=== PATIENT | female | born 1945 | race African-American/Black ===

== ENCOUNTER 2018-06-08 18:46 | Inpatient (IN) | payer MEDICARE, BC ==
[~2018-06-08] VITALS: Ht 160 cm; Wt 60.8 kg
[~2018-06-08 18:46] MED LIST: AMLO1CAP5 PO; BUPR1FIL3 SL; FLUO40CA49 PO; GABA-290 PO; LEVO500T89 PO; LOSA50TA20 PO; METH-375 PO; MULITVITAMIN PO; NEBI10TA2 PO; POTA20TA12 PO; RANI150T7 PO
[2018-06-08] MEDS ORDERED: METHYLPREDNISOLONE SOD SUCC 125 MG/2 ML VIAL IV STA (22:19)
[2018-06-08] MEDS ORDERED: LEVOFLOXACIN 750MG PREMIX 150 ML IV ONE (22:30)
[2018-06-08] MEDS ORDERED: IPRATROPIUM/ALBUTEROL 0.5-3(2.5)MG/3ML NEB HHN ONE (22:30)
[2018-06-08 22:56] LABS: BASOPHILS % 0.5 % (0.0-2.0); EOSINOPHILS % 5.6 % (0.0-5.0); HEMOGLOBIN. 11.7 g/dL (12.0-16.0); LYMPHOCYTES % 32.7 % (20.0-50.0); MEAN CORPUSCULAR HEMOGLOBIN 28.2 pg (28.0-32.0); MEAN CORPUSCULAR VOLUME 89.4 fL (81.0-99.0); MEAN PLATELET VOLUME 7.8 fl (7.4-10.4); MONOCYTES % 9.7 % (2.0-8.0); NEUTROPHILS % 51.5 % (40.0-76.0); PLATELET 270 x1000/uL (130-400); RED BLOOD CELL COUNT 4.14 mill/uL (4.2-5.4)
[2018-06-08 23:03] LABS: CHLORIDE 98 mEq/L (98-107); ETHANOL BLOOD < 10 mg/dL
[2018-06-08 23:05] LABS: INR 1.1; PROTHROMBIN TIME 10.7 sec (9.1-11.1)
[2018-06-08 23:34] LABS: BG BASE EXCESS 11.6 mmol/L (-2.0-2.0); BG CARBOXYHEMOGLOBIN 1.4 % (0.5-1.5); BG FRACTION INSPIRED OXYGEN 32; BG HCO3 ACT 40.3 mmol/L (22.0-26.0); BG METHEMOGLOBIN 0.1 % (0.0-1.5); BG OXYGEN SATURATION 91.9 % (92.0-98.5); BG OXYHEMOGLOBIN 90.5 % (94.0-97.0); BG PCO2 75.9 mmHg (35.0-45.0); BG PH 7.343 (7.350-7.450); BG PO2 69.9 mmHg (75.0-100.0); BG SAMPLE SITE RIGHT RADIAL; BG TOTAL HEMOGLOBIN 12.6 g/dL (12.0-18.0); BG VENT MODE NASAL CANNULA
[2018-06-09] MEDS ORDERED: POTASSIUM CHLORIDE 20MEQ TABLET SR PO ONE
[2018-06-09] MEDS ORDERED: ALBU4TAB6 PO (13:37)
[2018-06-09] MEDS ORDERED: ATOR10TA69 PO (13:43)
[2018-06-09] MEDS ORDERED: CARV12.545 PO (13:43)
[2018-06-09] MEDS ORDERED: FURO20TA4 PO (13:43)
[2018-06-09] MEDS ORDERED: LEVO50TA8 PO (13:43)
[2018-06-09] MEDS ORDERED: PREG50CA PO (13:43)
[2018-06-09] MEDS ORDERED: MONT10TA24 PO (13:43)
[2018-06-09] MEDS ORDERED: MOXI400T31 PO (13:43)
[2018-06-09] MEDS ORDERED: ALPR-340 PO (13:43)
[2018-06-09 14:00] VITALS: BP 112/71
[2018-06-09 14:19] VITALS: BP 112/112
[2018-06-09 16:00] VITALS: BP 129/79
[2018-06-09] MEDS ORDERED: NA PHOS,M-B/NA PHOS,DI-BA ENEMA 118ML PR PRN (16:45)
[2018-06-09] MEDS ORDERED: BISACODYL 10MG SUPP PR NR (16:45)
[2018-06-09] MEDS ORDERED: IPRATROPIUM/ALBUTEROL 0.5-3(2.5)MG/3ML NEB HHN PRN (16:45)
[2018-06-09] MEDS ORDERED: METHOCARBAMOL 750 MG PO PRN (16:45)
[2018-06-09] MEDS ORDERED: MEDICATION NOT ON FORMULARY EA (Furosemide 20 MG) PO SCH (16:45)
[2018-06-09] MEDS ORDERED: MEDICATION NOT ON FORMULARY EA (Fluoxetine Hcl 1 CAP) PO SCH (16:45)
[2018-06-09] MEDS ORDERED: ALBUTEROL SULFATE 4 MG PO SCH (17:00)
[2018-06-09] MEDS ORDERED: ALPRAZOLAM 0.5 MG PO SCH (17:00)
[2018-06-09] MEDS ORDERED: GABAPENTIN 300MG CAPSULE PO SCH (17:00)
[2018-06-09] MEDS ORDERED: MEDICATION NOT ON FORMULARY EA (Ranitidine Hcl 1 TAB) PO SCH (17:00)
[2018-06-09 18:00] VITALS: BP 122/60
[2018-06-09] MEDS ORDERED: LEVOFLOXACIN 500MG TABLET PO NR (18:00)
[2018-06-09] MEDS: ATORVASTATIN CALCIUM 10MG TABLET PO SCH (18:24)
[2018-06-09] MEDS: DOCUSATE SODIUM 100MG CAPSULE PO SCH (18:24)
[2018-06-09] MEDS: LEVOFLOXACIN 500MG TABLET PO SCH (18:25)
[2018-06-09] MEDS: LEVOTHYROXINE SODIUM 50MCG TABLET PO SCH (18:25)
[2018-06-09] MEDS: MONTELUKAST SODIUM 10MG TABLET PO SCH (18:25)
[2018-06-09] MEDS ORDERED: ALPRAZOLAM 0.5 MG TABLET PO SCH (18:30)
[2018-06-09] MEDS: ALBUTEROL 2MG TABLET PO SCH (19:04)
[2018-06-09] MEDS: FUROSEMIDE 20MG TABLET PO SCH (19:04)
[2018-06-09] MEDS: FLUOXETINE HCL 20MG CAPSULE PO SCH (19:05)
[2018-06-09 20:00] VITALS: BP 111/59
[2018-06-09] MEDS ORDERED: METHOCARBAMOL 750MG TABLET PO PRN (20:00)
[2018-06-09] MEDS: IPRATROPIUM/ALBUTEROL 0.5-3(2.5)MG/3ML NEB HHN SCH (20:19)
[2018-06-09] MEDS: FAMOTIDINE 20MG TABLET PO SCH (21:00)
[2018-06-09] MEDS: CARVEDILOL 12.5MG TABLET PO SCH (21:00)
[2018-06-09 22:00] VITALS: BP 160/95
[2018-06-09] MEDS: ALPRAZOLAM 0.5 MG TABLET PO SCH (22:09)
[2018-06-09] MEDS: NICOTINE 14MG PATCH TD SCH (22:09)
[2018-06-09] MEDS: METHYLPREDNISOLONE SOD SUCC 40 MG/ML VIAL IV SCH (22:12)
[2018-06-10] VITALS (12 sets, daily range): BP systolic 124–177; BP diastolic 58–91
[2018-06-10] MEDS: IPRATROPIUM/ALBUTEROL 0.5-3(2.5)MG/3ML NEB HHN SCH ×5 (00:31→20:54)
[2018-06-10] MEDS: METHYLPREDNISOLONE SOD SUCC 40 MG/ML VIAL IV SCH ×2 (05:34→21:19)
[2018-06-10 06:41] LABS: BASOPHILS % 0.1 % (0.0-2.0); EOSINOPHILS % 0.1 % (0.0-5.0); HEMATOCRIT. 33.9 % (36.0-48.0); HEMOGLOBIN. 10.9 g/dL (12.0-16.0); LYMPHOCYTES % 12.8 % (20.0-50.0); MEAN CORPUSCULAR HEMOGLOBIN 28.7 pg (28.0-32.0); MEAN CORPUSCULAR VOLUME 89.4 fL (81.0-99.0); MEAN PLATELET VOLUME 7.7 fl (7.4-10.4); MONOCYTES % 3.4 % (2.0-8.0); NEUTROPHILS % 83.6 % (40.0-76.0); PLATELET 227 x1000/uL (130-400); RED CELL DISTRIBUTION WIDTH 13.6 % (11.6-14.6)
[2018-06-10 06:53] LABS: CHLORIDE 102 mEq/L (98-107)
[2018-06-10 06:56] LABS: INR 1.1; PARTIAL THROMBOPLASTIN TIME 28.5 sec (23.4-31.0)
[2018-06-10 07:05] LABS: PHOSPHORUS 4.1 mg/dL (2.5-4.9)
[2018-06-10 07:06] LABS: LDL CHOLESTEROL 71 mg/dL (5-100)
[2018-06-10 07:09] LABS: TOTAL IRON BINDING CAPACITY 241 ug/dL (250-450)
[2018-06-10 07:11] LABS: T4 FREE 1.08 ng/dL (0.76-1.46)
[2018-06-10 07:13] LABS: HDL CHOLESTEROL 89 mg/dL (40-59)
[2018-06-10] MEDS: MONTELUKAST SODIUM 10MG TABLET PO SCH (09:10)
[2018-06-10] MEDS: ATORVASTATIN CALCIUM 10MG TABLET PO SCH (09:10)
[2018-06-10] MEDS: ALPRAZOLAM 0.5 MG TABLET PO SCH (09:10)
[2018-06-10] MEDS: LEVOTHYROXINE SODIUM 50MCG TABLET PO SCH (09:10)
[2018-06-10] MEDS: DOCUSATE SODIUM 100MG CAPSULE PO SCH (09:10)
[2018-06-10] MEDS: FLUOXETINE HCL 20MG CAPSULE PO SCH (09:11)
[2018-06-10] MEDS: ALBUTEROL 2MG TABLET PO SCH ×2 (09:11→18:13)
[2018-06-10] MEDS: FUROSEMIDE 20MG TABLET PO SCH (09:12)
[2018-06-10] MEDS: CARVEDILOL 12.5MG TABLET PO SCH ×2 (09:12→21:20)
[2018-06-10] MEDS: AMLODIPINE 5MG TABLET PO SCH (09:12)
[2018-06-10] MEDS: NICOTINE 14MG PATCH TD SCH (09:13)
[2018-06-10 10:21] LABS: BG BASE EXCESS 13.4 mmol/L (-2.0-2.0); BG CARBOXYHEMOGLOBIN 0.3 % (0.5-1.5); BG DEOXYHEMOGLOBIN 3.7 % (0.0-5.0); BG FRACTION INSPIRED OXYGEN 32; BG HCO3 ACT 40.4 mmol/L (22.0-26.0); BG METHEMOGLOBIN 0.2 % (0.0-1.5); BG OXYGEN SATURATION 96.3 % (92.0-98.5); BG OXYHEMOGLOBIN 95.8 % (94.0-97.0); BG PCO2 63.7 mmHg (35.0-45.0); BG PO2 84.3 mmHg (75.0-100.0); BG SAMPLE SITE RIGHT BRACHIAL; BG TOTAL HEMOGLOBIN 11.8 g/dL (12.0-18.0); BG VENT MODE NASAL CANNULA
[2018-06-10] MEDS ORDERED: NON FORMULARY PATIENT HOME MED XX SCH (10:45)
[2018-06-10] MEDS ORDERED: ALPRAZOLAM 0.5 MG TABLET PO SCH (17:00)
[2018-06-10 20:36] LABS: CLARITY URINE CLEAR (CLEAR); COLOR URINE YELLOW (YELLOW); KETONES URINE NEGATIVE (NEGATIVE); LEUKOCYTE ESTERASE URINE NEGATIVE (NEGATIVE); NITRITE URINE NEGATIVE (NEGATIVE); OCCULT BLOOD URINE NEGATIVE (NEGATIVE); PROTEIN URINE NEGATIVE (NEGATIVE); SPECIFIC GRAVITY URINE 1.024 (1.005-1.030)
[2018-06-10] MEDS: FAMOTIDINE 20MG TABLET PO SCH (21:20)
[2018-06-11] VITALS (12 sets, daily range): BP systolic 91–201; BP diastolic 48–100
[2018-06-11] MEDS: ALPRAZOLAM 0.5 MG TABLET PO SCH ×4 (00:08→22:13)
[2018-06-11] MEDS: IPRATROPIUM/ALBUTEROL 0.5-3(2.5)MG/3ML NEB HHN SCH ×5 (00:34→20:29)
[2018-06-11] MEDS: METHYLPREDNISOLONE SOD SUCC 40 MG/ML VIAL IV SCH (08:15)
[2018-06-11] MEDS: LEVOTHYROXINE SODIUM 50MCG TABLET PO SCH (08:15)
[2018-06-11] MEDS: DOCUSATE SODIUM 100MG CAPSULE PO SCH (08:15)
[2018-06-11] MEDS: ATORVASTATIN CALCIUM 10MG TABLET PO SCH (08:19)
[2018-06-11] MEDS: AMLODIPINE 5MG TABLET PO SCH (08:19)
[2018-06-11] MEDS: MONTELUKAST SODIUM 10MG TABLET PO SCH (08:19)
[2018-06-11] MEDS: NICOTINE 14MG PATCH TD SCH (08:19)
[2018-06-11] MEDS: CARVEDILOL 12.5MG TABLET PO SCH (08:20)
[2018-06-11] MEDS: ALBUTEROL 2MG TABLET PO SCH ×2 (08:20→16:28)
[2018-06-11] MEDS: FLUOXETINE HCL 20MG CAPSULE PO SCH (08:20)
[2018-06-11] MEDS: FUROSEMIDE 20MG TABLET PO SCH (08:28)
[2018-06-11 09:01] LABS: BG BASE EXCESS 9.3 mmol/L (-2.0-2.0); BG CARBOXYHEMOGLOBIN 0.7 % (0.5-1.5); BG DEOXYHEMOGLOBIN 2.8 % (0.0-5.0); BG FRACTION INSPIRED OXYGEN 28; BG HCO3 ACT 35.4 mmol/L (22.0-26.0); BG METHEMOGLOBIN 0.2 % (0.0-1.5); BG OXYGEN SATURATION 97.2 % (92.0-98.5); BG OXYHEMOGLOBIN 96.3 % (94.0-97.0); BG PCO2 55.4 mmHg (35.0-45.0); BG PH 7.423 (7.350-7.450); BG PO2 92.3 mmHg (75.0-100.0); BG SAMPLE SITE RIGHT BRACHIAL; BG TOTAL HEMOGLOBIN 11.9 g/dL (12.0-18.0); BG VENT MODE NASAL CANNULA
[2018-06-11 14:44] LABS: BG BASE EXCESS 11.6 mmol/L (-2.0-2.0); BG CARBOXYHEMOGLOBIN 0.8 % (0.5-1.5); BG FRACTION INSPIRED OXYGEN 21; BG HCO3 ACT 36.8 mmol/L (22.0-26.0); BG OXYGEN SATURATION 85.9 % (92.0-98.5); BG OXYHEMOGLOBIN 85.2 % (94.0-97.0); BG PCO2 50.2 mmHg (35.0-45.0); BG PH 7.483 (7.350-7.450); BG PO2 48.6 mmHg (75.0-100.0); BG SAMPLE SITE RIGHT BRACHIAL; BG TOTAL HEMOGLOBIN 12.7 g/dL (12.0-18.0); BG VENT MODE ROOM AIR
[2018-06-11] MEDS ORDERED: AMLODIPINE 5MG TABLET PO NR (16:00)
[2018-06-11] MEDS ORDERED: FUROSEMIDE 20MG TABLET PO NR (16:00)
[2018-06-11] MEDS: PANTOPRAZOLE SODIUM 40 MG/VIAL IV SCH (16:28)
[2018-06-11] MEDS: LEVOFLOXACIN 500MG TABLET PO SCH (16:28)
[2018-06-11] MEDS: NEBIVOLOL HCL 5 MG TABLET PO SCH (16:29)
[2018-06-11] MEDS: ONDANSETRON HCL 4MG/2ML INJ IV PRN (17:29)
[2018-06-11] MEDS: SUBOXONE 8MG-2MG FILM PO SCH (22:41)
[2018-06-12] VITALS (9 sets, daily range): BP systolic 99–171; BP diastolic 52–92
[2018-06-12] MEDS: IPRATROPIUM/ALBUTEROL 0.5-3(2.5)MG/3ML NEB HHN SCH ×4 (01:15→12:01)
[2018-06-12] MEDS: ALPRAZOLAM 0.5 MG TABLET PO SCH (06:26)
[2018-06-12] MEDS: LEVOTHYROXINE SODIUM 50MCG TABLET PO SCH (06:27)
[2018-06-12] MEDS: ONDANSETRON HCL 4MG/2ML INJ IV PRN (06:32)
[2018-06-12] MEDS: SUBOXONE 8MG-2MG FILM PO SCH (09:00)
[2018-06-12] MEDS ORDERED: PREDNISONE 10MG TABLET PO SCH (09:00)
[2018-06-12] MEDS: NICOTINE 14MG PATCH TD SCH (09:01)
[2018-06-12] MEDS: FLUOXETINE HCL 20MG CAPSULE PO SCH (09:01)
[2018-06-12] MEDS: MONTELUKAST SODIUM 10MG TABLET PO SCH (09:03)
[2018-06-12] MEDS: FUROSEMIDE 20MG TABLET PO SCH (09:03)
[2018-06-12] MEDS: NEBIVOLOL HCL 5 MG TABLET PO SCH (09:03)
[2018-06-12] MEDS: DOCUSATE SODIUM 100MG CAPSULE PO SCH (09:03)
[2018-06-12] MEDS: PANTOPRAZOLE SODIUM 40 MG/VIAL IV SCH (09:04)
[2018-06-12] MEDS: AMLODIPINE 5MG TABLET PO SCH (09:04)
[2018-06-12] MEDS: ATORVASTATIN CALCIUM 10MG TABLET PO SCH (09:58)
== END 2018-06-12 15:10 | disposition home or self-care (01) | DRG 189 ==
LOC: ER 18:46 → 5EST 06-09 00:09 → EDBEDREQDT 06-09 00:16 → EDBEDREQ 06-09 00:16 → EDBEDREQTM 06-09 00:16 → EDBEDREQSVC 06-09 00:16 → ENRESERV 06-09 11:23 → 5EST 06-11 14:10
PROVIDERS: ADMIT Internal Medicine; ATTEND Internal Medicine
PROC: 5A09357 Assistance with Respiratory Ventilation, Less than 24 Consecutive Hours, Continuous Positive Airway Pressure (ICD-10-PCS; principal; 2018-06-09)
DX: J96.21 Acute and chronic respiratory failure with hypoxia (principal); J44.0 Chronic obstructive pulmonary disease with (acute) lower respiratory infection; J44.1 Chronic obstructive pulmonary disease with (acute) exacerbation; E87.2 Acidosis; E44.0 Moderate protein-calorie malnutrition; F11.20 Opioid dependence, uncomplicated; J20.9 Acute bronchitis, unspecified; E78.5 Hyperlipidemia, unspecified; E87.6 Hypokalemia; J96.22 Acute and chronic respiratory failure with hypercapnia; F17.200 Nicotine dependence, unspecified, uncomplicated; F41.1 Generalized anxiety disorder; F43.20 Adjustment disorder, unspecified; G62.9 Polyneuropathy, unspecified; I10 Essential (primary) hypertension; E03.9 Hypothyroidism, unspecified; G89.29 Other chronic pain; M79.18 Myalgia, other site; Z79.899 Other long term (current) drug therapy; Z68.23 Body mass index [BMI] 23.0-23.9, adult; Z87.01 Personal history of pneumonia (recurrent); Z88.0 Allergy status to penicillin; Z90.710 Acquired absence of both cervix and uterus; Z99.81 Dependence on supplemental oxygen
CPT/HCPCS: 36415; 36600; 71045; 80048; 80061; 80069; 82247; 82375; 82805; 83540; 83550; 83605; 83735; 83880; 84100; 84439; 84443; 84450; 84460; 84480; 84484; 84550; 85651; 93005; 93970; 94640; 94660; 97162; 99285; C9113; J1956; J2405; J2920; J2930; J7512; J7620